=== PATIENT | female | born 1975 | race Caucasian/White ===

== ENCOUNTER 2016-07-22 12:11 | Emergency (ER) | payer OTHER ==
[~2016-07-22] VITALS: Ht 162.6 cm; Wt 88.5 kg
[2016-07-22 12:40] VITALS: BP 127/75
[2016-07-22] MEDS ORDERED: HYDR-971 PO (13:39)
--- NOTE | 2016-07-22 13:40 | PHYS DOC ---
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 Patient states that she has had history of thrombosed hemorrhoids and states that this feels very similar. Patient first noticed symptoms 2 days ago. Patient came to the emergency department due to worsening pain associated with her hemorrhoids. Patient denies any bloody stools. Patient rates her pain currently 6 out of 10. Patient states that she has not used any medications at this time to help with her symptoms. Patient has had 3 prior episodes over the last 10 years and has had excision of her hemorrhoids done by her primary care office. Patient denies any fever, abdominal pain, or any other symptoms at this time. Review of Systems Review of Systems Constitutional: Denies fever or chills [] Eyes: Denies change in visual acuity, redness, or eye pain [] HENT: Denies nasal congestion or sore throat [] Respiratory: Denies cough or shortness of breath [] Cardiovascular: No additional information not addressed in HPI [] GI: Rectal pain, denies abdominal pain, nausea, vomiting, bloody stools or diarrhea [] : Denies dysuria or hematuria [] Musculoskeletal: Denies back pain or joint pain [] Integument: Denies rash or skin lesions [] Neurologic: Denies headache, focal weakness or sensory changes [] Allergies Allergies Allergies Coded Allergies Type Severity Reaction Last Updated Verified NSAIDS (Non-Steroidal Anti-Inflamma Allergy Severe 07/22/16 Yes ibuprofen Allergy Severe 07/22/16 Yes Physical Exam Physical Exam Constitutional: Well developed, well nourished, no acute distress, non-toxic appearance. [] HENT: Normocephalic, atraumatic, bilateral external ears normal, oropharynx moist, no oral exudates, nose normal. [] Eyes: PERRLA, EOMI, conjunctiva normal, no discharge. [] Neck: Normal range of motion, no tenderness, supple, no stridor. [] Cardiovascular:Heart rate regular rhythm, no murmur [] Lungs & Thorax: Bilateral breath sounds clear to auscultation [] Abdomen: Bowel sounds normal, soft, no abdominal tenderness, no masses, no pulsatile masses. Rectal: 3 cm thrombosed external hemorrhoid along right side of the anus, tender to palpation, no active bleeding present [] Skin: Warm, dry, no erythema, no rash. [] Back: No tenderness, no CVA tenderness. [] Extremities: No tenderness, no cyanosis, no clubbing, ROM intact, no edema. [] Neurologic: Alert and oriented X 3, normal motor function, normal sensory function, no focal deficits noted. [] Current Patient Data Vital Signs Vital Signs Date Time Temp Pulse Resp B/P (MAP) Pulse Ox O2 Delivery O2 Flow Rate FiO2 07/22/16 12:40 98.8 100 16 127/75 (92) 98 Room Air 98.8 EKG EKG Not performed [] Radiology/Procedures Radiology/Procedures Not performed [] Course & Med Decision Making Course & Med Decision Making Pertinent Labs and Imaging studies reviewed. (See chart for details) I consulted Dr. Ceja from the emergency department. After speaking with him regarding the patient's case, he did not recommend incision of the hemorrhoid as it is been present for greater than 24 hours. He recommended use of pain medication, sitz bath's, and Rectacare topical medication. Agreed to follow-up with patient in 1-2 weeks. Spoke with patient regarding Dr. Ceja's recommendations and she is in agreement at time of discharge. Patient discharged with prescription for [place]. Advised return emergency department for any worsening symptoms. Patient voiced understanding and in agreement with treatment plan. Dragon Disclaimer Dragon Disclaimer This electronic medical record was generated, in whole or in part, using a voice recognition dictation system. Departure Departure Impression: Primary Impression: Thrombosed external hemorrhoid Disposition: HOME, SELF-CARE Condition: STABLE Referrals: MARCELO ROSEN (PCP) KAYDEN CEJA MD Patient Instructions: Hemorrhoids Additional Instructions: Follow-up in one to [address] Ceja of general surgery. It is recommended that you use sitz bath's and a topical medicine called Rectacare which is available [id number]. Speak with your pharmacist for assistance in obtaining these treatments. Return to the emergency department for any worsening symptoms. Scripts Hydrocodone/Apap 5-325 (NORCO 5-325 TABLET) 1 Each Tablet 1-2 TAB PO Q4-6HRS Y for PAIN, #20 TAB Prov: IVETTE MOSQUERA MD 07/22/16 IVETTE MOSQUERA MD July 22, 2016 13:40
== END 2016-07-22 14:10 | disposition home or self-care (01) ==
LOC: ER 12:11
DX: K64.5 Perianal venous thrombosis (principal); F32.9 Major depressive disorder, single episode, unspecified; Z90.710 Acquired absence of both cervix and uterus; Z88.6 Allergy status to analgesic agent
CPT/HCPCS: 99283